=== PATIENT | female | born 1955 | race Two or more races ===

== ENCOUNTER 2023-05-07 13:29 | Outpatient (CLI) | payer OTHER ==
[~2023-05-07 13:29] MED LIST: CELEBREX200MG PO; DEPO-MEDROL40 MG/ML IM; DICLOFENAC POTA50 MG PO; FLEXERIL10 MG PO; METAXALONE800 MG PO; VOLTAREN ARTHRI20 GM TOP
== END 2023-05-07 13:32 | disposition home or self-care (01) ==
LOC: SONOGRAMA 13:29
PROVIDERS: ATTEND Physical Medicine & Rehabilitation
DX: M75.101 Unspecified rotator cuff tear or rupture of right shoulder, not specified as traumatic (principal); M19.011 Primary osteoarthritis, right shoulder

== ENCOUNTER 2023-06-01 13:23 | Outpatient (CLI) | payer OTHER ==
[~2023-06-01 13:23] MED LIST changes: +GABAPENTIN100 M2 PO; +MEDROLPACK PO
== END 2023-06-01 13:27 | disposition home or self-care (01) ==
LOC: MAMO-SONO 13:23
PROVIDERS: ATTEND Specialist
DX: M79.7 Fibromyalgia (principal); M06.4 Inflammatory polyarthropathy; I10 Essential (primary) hypertension; E78.2 Mixed hyperlipidemia; R73.03 Prediabetes; I70.0 Atherosclerosis of aorta; F33.0 Major depressive disorder, recurrent, mild; F41.9 Anxiety disorder, unspecified; M50.90 Cervical disc disorder, unspecified, unspecified cervical region; M17.9 Osteoarthritis of knee, unspecified; R19.7 Diarrhea, unspecified; M06.9 Rheumatoid arthritis, unspecified; Z12.39 Encounter for other screening for malignant neoplasm of breast; N64.59 Other signs and symptoms in breast; N63.11 Unspecified lump in the right breast, upper outer quadrant; N63.21 Unspecified lump in the left breast, upper outer quadrant; Z12.31 Encounter for screening mammogram for malignant neoplasm of breast